=== PATIENT | female | born 1950 | race Caucasian/White ===

== ENCOUNTER → 2017-10-24 | Outpatient (CLI) | payer OTHER, MEDICARE | LOC: FIMAGING 14:40 | PROVIDERS: ATTEND Internal Medicine | DX: Z12.31 Encounter for screening mammogram for malignant neoplasm of breast (principal); Z80.3 Family history of malignant neoplasm of breast ==

== ENCOUNTER → 2018-11-18 | Outpatient (CLI) | payer OTHER, MEDICARE | LOC: FIMAGING 09:27 | PROVIDERS: ATTEND Internal Medicine | DX: Z12.31 Encounter for screening mammogram for malignant neoplasm of breast (principal); Z80.3 Family history of malignant neoplasm of breast ==

== ENCOUNTER → 2018-12-02 | Outpatient (CLI) | payer OTHER, MEDICARE | LOC: BMCIMAGING 09:59 | PROVIDERS: ATTEND Internal Medicine Rheumatology | DX: M46.1 Sacroiliitis, not elsewhere classified (principal) ==

== ENCOUNTER → 2019-03-04 | Outpatient (CLI) | payer OTHER, MEDICARE | LOC: FIMAGING 09:56 | PROVIDERS: ATTEND Internal Medicine | DX: Z13.820 Encounter for screening for osteoporosis (principal); M81.0 Age-related osteoporosis without current pathological fracture; Z78.0 Asymptomatic menopausal state ==